=== PATIENT | female | born 2005 | race Caucasian/White ===

== ENCOUNTER 2024-12-24 00:29 | Emergency (ER) | payer MEDICAID, OTHER ==
[~2024-12-24] VITALS: Ht 152.4 cm; Wt 43.0 kg
[2024-12-24 01:24] VITALS: BP 140/86; PULSE 108; RESP 20; TEMP 99.5; O2SAT 98
[2024-12-24] MEDS: SODIUM CHLORIDE 0.9% 1,000 ML IV ONE (01:39)
[2024-12-24] MEDS: diphenhdrAMINE HCL 50 MG/1 ML VL IV ONE (01:49)
[2024-12-24] MEDS: FAMOTIDINE (10MG/ML) 2ML VL IV ONE (01:50)
[2024-12-24] MEDS: methylPREDNISolone SOD SUCC 40 MG/ML VL IV ONE (01:50)
--- NOTE | 2024-12-24 02:37 | ED.PDOC ---
HPI Allergic reaction HPI Comments PRESENTS TO ED FOR RASHES ALL OVER HER BODY X 5 DAYS. DENIES ANY KNOWN ALLERGIES. DENIES CHANGES IN DIET, SKIN PRODUCTS, LAUNDRY PRODUCTS. REPORTS ITCHINESS. STATES THAT SHE WENT TO URGENT CARE AND RECEIVED PRESCRIPTION FOR PREDNISONE AND LORATIDINE WITHOUT RELIEF. BREATHING EVEN AND NONLABORED. VS WNL Chief Complaint: Allergic Reaction Time Seen by MD: 01:01 Reviewed Notes: Nurses Notes, Medications, Allergies Allergies: Coded Allergies: NO KNOWN ALLERGIES (Unverified , 12/24/24) Information Source: Patient Mode of Arrival: Ambulatory Past Medical History PAST MEDICAL HISTORY: Denies Surgical History: Denies all surgeries DIRECTOR OF USER EXPERIENCE History: No Pertinent DIRECTOR OF USER EXPERIENCE History Family History Family History: Reviewed,noncontributory to illness Social History Smoker: Non-Smoker Alcohol: Denies ETOH Use Drugs: Denies Drug Use Constitutional: denies: chills, diaphoresis, fatigue, fever, malaise, sweats, weakness, others EENTM: denies: blurred vision, double vision, ear bleeding, ear discharge, ear drainage, ear pain, ear ringing, eye pain, eye redness, hearing loss, mouth pain, mouth swelling, nasal discharge, nose bleeding, nose congestion, nose pain, photophobia, tearing, throat pain, throat swelling, voice changes, others Respiratory: denies: cough, hemoptysis, orthopnea, SOB at rest, shortness of breath, SOB with excertion, stridor, wheezing, others Cardiovascular: denies: chest pain, dizzy spells, diaphoresis, Dyspnea on exertion, edema, irregular heart beat, left arm pain, lightheadedness, palpitations, PND, syncope, others Gastrointestinal: denies: abdomen distended, abdominal pain, blood streaked bowels, constipated, diarrhea, dysphagia, difficulty swallowing, hematemesis, melena, nausea, poor appetite, poor fluid intake, rectal bleeding, rectal pain, vomiting, others Genitourinary: denies: abnormal vagina bleeding, burning, dyspareunia, dysuria, flank pain, frequency, hematuria, incontinence, pain, , vagina discharge, urgency, others Neurological: denies: dizziness, fainting, headache, left sided numbness, left sided weakness, numbness, paresthesia, pre-existing deficit, right sided numbness, right sided weakness, seizure, speech problems, tingling, tremors, weakness, others Musculoskeletal: denies: back pain, gout, joint pain, joint swelling, muscle pain, muscle stiffness, neck pain, others Integumetry: reports: rash (DIFFUSE); denies: bruises, change in color, change in hair/nails, dryness, laceration, lesions, lumps, wounds, others Allergic/Immunocompromised: denies: Difficulty Healing, Frequent Infections, Hives, Itching, others Hematologic/Lymphatic: denies: anemia, blood clots, easy bleeding, easy bruising, swollen glands, others Endocrine: denies: excessive hunger, excessive sweating, excessive thirst, excessive urination, flushing, intolerance to cold, intolerance to heat, unexplained weight gain, unexplained weight loss, others Psychiatric: denies: anxiety, bipolar disorder, depression, hopeless, panic disorder, schizophrenia, sleepless, suicidal, others Physical Exam General Appearance: No Apparent Distress, Normal HEENT: Pharynx Normal Neck: Full Range of Motion, Non-Tender Respiratory: Lungs Clear, No Respiratory Distress, Normal Breath Sounds Cardiovascular: No Murmur, Normal Peripheral Pulses, Regular Rate/Rhythm Breast Exam: Deferred Gastrointestinal: No Organomegaly, Non Tender, Soft Genitalia: Deferred Pelvic: Deferred Rectal: Deferred Extremities: Normal capillary refill, Normal inspection, Normal range of motion, Non-tender, No pedal edema Musculoskeletal : Apperance: Normal Neurologic: Alert, knowledge manager II-XII nml as Tested, No Motor Deficits, Normal Affect, Normal Mood, No Sensory Deficits Cerebellar Function: Normal Reflexes: Normal Skin: Dry, Normal Color, Rash (URTICARIAL RASH NOTED BILATERAL ARMS TRUNK AND L EGS NO NOTED EXCORIATIONS OR OPEN LESIONS), Warm Lymphatic: No Adenopathy Was a procedure done? Was a procedure done?: No Differential diagnosis (all) Differential Diagnosis: Anaphylaxis, Angioedema, Drug Reaction X-Ray, Labs, Meds, VS Vital Signs Date Time Temp Pulse Resp B/P (MAP) Pulse Ox O2 Delivery O2 Flow Rate FiO2 12/24/24 01:24 99.5 108 20 140/86 (104) 98 99.5 12/24/24 01:24 108 20 98 Room Air 12/24/24 00:38 20 98 Room Air* 0 21 12/24/24 00:38 99.5 108 20 140/86 (104) 98 X-Ray, Labs, Meds, VS Comment PATIENT GIVEN SOLU-MEDROL 40 MG IV, PEPCID 20 MG IV, BENADRYL 25 MG IV, AND NORMAL SALINE 1000 ML BOLUS. SHE PARTS RESOLUTION IN HIS SYMPTOMS NOTES MONITOR IMPROVEMENT REQUESTING DISCHARGE AT THIS TIME. ADVISED TO FOLLOW UP WITH HER PCP WITHIN 2-3 DAYS CONSIDER REFERRAL TO [facility] LIVES WITH THE CONTINUE THE MEDS THAT WE PRESCRIBED PRIOR BY URGENT CARE. ER RETURN PRECAUTIONS GIVEN PATIENT INDICATES UNDERSTANDING AND AGREES WITH DISCHARGE PLAN OF CARE. Time of 1ST Reevaluation: 02:30 Reevaluation 1ST: Improved Patient Education/Counseling: Diagnosis, Treatment, Prognosis, Need For Follow Up Family Education/Counseling: No Family Present Departure 1 Departure Time of Disposition: 02:36 Impression: Primary Impression: Allergic reaction Qualified Codes: T78.40XA - Allergy, unspecified, initial encounter Disposition: 01 HOME / SELF CARE / HOMELESS Condition: Stable Discharged With: Relative (Mother) Critical Care Note Critical Care Time?: No Stability Stability form required: BRITTA Coleman Dec 24, 2024 02:37
== END 2024-12-24 02:42 | disposition home or self-care (01) ==
LOC: ER 00:29
DX: T78.40XA Allergy, unspecified, initial encounter (principal); X58.XXXA Exposure to other specified factors, initial encounter
CPT/HCPCS: 96360; 99283; J1200; J2919; J3490; J7030